=== PATIENT | female | born 1990 | race American Indian/Alaskan Native ===

== ENCOUNTER 2017-02-04 02:42 | Emergency (ER) | payer BC ==
[2017-02-04 04:17] LABS: Basophils % (Auto) 0.3 % (0.0-1.8); Hematocrit 30.9 % (30.3-42.9); Hemoglobin 9.7 gm/dl (10.1-14.3); Mean Corpuscular HGB Conc 32 % (30-34); Mean Corpuscular Hemoglobin 28 pg (28-32); Mean Corpuscular Volume 89 fl (79-97); Platelet Count 186 K/mm3 (140-440); Red Blood Count 3.48 M/mm3 (3.65-5.03); Red Cell Distribution Width 13.6 % (13.2-15.2); White Blood Count 15.6 K/mm3 (4.5-11.0)
--- NOTE | 2017-02-04 06:16 | Emergency Department Report ---
ED HPI - General Chief complaint: Vaginal Bleeding Stated complaint: VAGINAL BLEEDING/SELF Time Seen by Provider: 02/04/17 06:03 Source: patient Mode of arrival: Stretcher Limitations: No Limitations - History of Present Illness Initial comments: 26-year-old female presents to the emergency department complaining of vaginal bleeding. Patient states that she began a medical 2 days ago by taking the first dose of methotrexate. Yesterday she began having a small amount of vaginal bleeding. This has increased heavy bleeding approximately 6 hours prior to arrival. Patient reports mild lower abdominal cramping. Patient states she has been passing clots as well. She has not passed out. There are no other complaints. MD Complaint: vaginal bleeding -: Gradual, days(s) (1) Location: pelvis Radiation: none Severity: mild Severity scale (0 -10): 2 Quality: cramping Consistency: intermittent Improves with: none Worsens with: none Associated symptoms: denies other symptoms Vaginal bleeding: heavy, clots :: Yes OB History - Current : no complications OB History - Previous Pregnancies: no complications Pre- care: followed by OB - Related Data Home Medications Medication Instructions Recorded Confirmed Last Taken No Known Home Medications [No 02/04/17 02/04/17 Unknown Reported Home Medications] Allergies Allergy/AdvReac Type Severity Reaction Status Date / Time No Known Allergies Allergy Unverified 02/04/17 03:29 ED Review of Systems ROS: Stated complaint: VAGINAL BLEEDING/SELF Other details as noted in HPI Comment: All other systems reviewed and negative Genitourinary: as per HPI, abnormal menses ED Past Medical Hx - Past Medical History Previous Medical History?: No - Surgical History Past Surgical History?: No - Family History Family history: no significant - Social History Smoking Status: Never Smoker Substance Use Type: Alcohol, Marijuana - Medications Home Medications: Home Medications Medication Instructions Recorded Confirmed Last Taken Type No Known Home Medications [No 02/04/17 02/04/17 Unknown History Reported Home Medications] ED Physical Exam - General Limitations: No Limitations General appearance: alert, in no apparent distress - Head Head exam: Present: atraumatic, normocephalic - Eye Eye exam: Present: normal appearance, PERRL, EOMI - ENT ENT exam: Present: normal exam, normal orophraynx, mucous membranes moist - Neck Neck exam: Present: normal inspection, full ROM. Absent: tenderness - Respiratory Respiratory exam: Present: normal lung sounds bilaterally. Absent: respiratory distress - Cardiovascular Cardiovascular Exam: Present: regular rate, normal rhythm, normal heart sounds - GI/Abdominal GI/Abdominal exam: Present: soft, normal bowel sounds. Absent: distended, tenderness - Extremities Exam Extremities exam: Present: normal inspection, full ROM. Absent: tenderness - Back Exam Back exam: Present: normal inspection, full ROM. Absent: tenderness - Neurological Exam Neurological exam: Present: alert, oriented X3. Absent: motor sensory deficit - Skin Skin exam: Present: warm, dry, intact ED Course Vital Signs 02/04/17 04:01 Pulse Rate 77 Respiratory 20 Rate Blood Pressure 105/59 [Left] O2 Sat by Pulse 98 Oximetry ED Medical Decision Making - Lab Data Result diagrams: 02/04/17 03:40 - Medical Decision Making Lab results reviewed and discussed with the patient. I have discussed the patient with Dr. Alejo, [employer]. Patient will be given a single oral dose of 400 g of misoprostol. She will be discharged home to follow up as an outpatient. - Differential Diagnosis vaginal bleeding, spontaneous Critical care attestation.: If time is entered above; I have spent that time in minutes in the direct care of this critically ill patient, excluding procedure time. ED Disposition Clinical Impression: Vaginal bleeding in Qualifiers: Trimester: first trimester Qualified Code(s): O46.91 - Antepartum hemorrhage, unspecified, first trimester Disposition: DISCHARGED TO HOME OR SELFCARE Is pt being admited?: No Condition: Stable Referrals: JOSE JOYA MD [Staff Physician] - 3-5 Days Time of Disposition: 06:20
[2017-02-04 06:41] VITALS: BP 102/62
[2017-02-04] MEDS: CYTOTEC PO ONE (06:42)
[2017-02-04 06:54] LABS: Bilirubin,Urine NEG (Negative); Blood,Urine LG (Negative); Ketones,Urine NEG (Negative); Leukocyte Esterase,Urine TR (Negative); Nitrite,Urine NEG (Negative); Urobilinogen,Urine < 2.0 mg/dL (<2.0)
[2017-02-04 07:06] LABS: Mucus,Urine FEW /HPF
[2017-02-04 07:22] LABS: RBC,Urine > 182.0 /HPF (0.0-6.0)
== END 2017-02-04 07:08 | disposition home or self-care (01) ==
LOC: ED 02:42
DX: O46.91 Antepartum hemorrhage, unspecified, first trimester (principal); Z3A.01 Less than 8 weeks gestation of pregnancy
CPT/HCPCS: 36415; 81001; 85025; 86850; 86900; 86901; 99283